=== PATIENT | female | born 1970 | race Two or more races ===

== ENCOUNTER 2024-09-21 09:53 | Emergency (ER) | payer OTHER, MEDICAID, SELFPAY ==
[2024-09-21 09:54] VITALS: BMI 28.3
[2024-09-21 10:00] VITALS: BP 126/84; PULSE 67; RESP 18; TEMP 36.6; O2SAT 99; BMI 27.3
--- NOTE | 2024-09-21 10:12 | XR_ITS ---
Examination: CT abdomen and pelvis without contrast. Coronal 3-D reconstructions. Sagittal 2-D reconstructions. Date and time of exam:September 21, 1999 2547 hours Indications: Onset right flank pain beginning 3 days ago CTDI: vol (mGy): 7.6 DLP: (mGycm): 407 Technique: Axial images of the abdomen have been obtained, 3 mm slice thickness Intravenous contrast material has not been administered. Low dose protocols were performed. One or more of the following dose reduction techniques were used; automated exposure control, adjustment of the mA and/or KV according to patient size, use of iterative reconstruction technique. Findings: 2 mm indeterminate low-density right lobe liver lesion likely cyst No biliary tract dilatation Contracted gallbladder Spleen is not enlarged No pancreatic mass or peripancreatic edema Normal adrenal glands Atrophic right kidney No renal or ureteral calculi Moderate right renal parenchymal scar formation No hydronephrosis 14 mm fat-containing umbilical hernia Normal appendix No diverticulitis Pelvic phleboliths No bladder mass or bladder calculi Anteverted uterus no pelvic mass Moderate distention posteriorly L5-S1 Impression: Atrophic right kidney, moderate right renal parenchymal scar formation No renal or ureteral calculi, no hydronephrosis Normal appendix No bowel obstruction diverticulitis or free air No bladder mass or bladder calculi
[2024-09-21 11:16] LABS: Collection Type, Urine Clean Catch
[2024-09-21 11:35] LABS: Basophils % (Auto) 1 % (0-2.5); Eosinophils # (Auto) 0.1 Thou/mm3 (0.0-0.5); Eosinophils % (Auto) 2 % (0-10); Hemoglobin 13.7 g/dL (12.0-16.0); Immature Granulocytes % (Auto) 0 % (0-0); Immature Granulocytes Auto 0.01 Thou/mm3 (0.00-0.00); Lymphocytes # (Auto) 1.7 Thou/mm3 (1.0-4.8); Lymphocytes % (Auto) 32 % (10-50); Mean Corpuscular HGB Conc 33.4 g/dl (31.0-37.0); Mean Corpuscular Hemoglobin 29.5 pg (25.0-35.0); Mean Corpuscular Volume 88 fL (80-100); Monocytes # (Auto) 0.4 Thou/mm3 (0.0-0.8); Monocytes % (Auto) 7 % (0-12); Neutrophils # (Auto) 3.1 Thou/mm3 (1.8-7.7); Neutrophils % (Auto) 59 % (37-80); Nucleated Red Blood Cell % 0 /100 WBC (0); Platelet Count 201 Thou/mm3 (140-440); RDW Standard Deviation 41.8 fL (36.4-46.3); Red Blood Count 4.64 Miln/mm3 (4.00-5.20); White Blood Count 5.4 Thou/mm3 (3.6-11.0)
[2024-09-21 11:40] LABS: Alanine Aminotransferase 14 U/L (10-49); Albumin, Serum 4.7 gm/dL (3.5-5.0); Albumin/Globulin Ratio 1.7 (1.2-2.2); Alkaline Phosphatase 51 U/L (46-116); Anion Gap 4 (7-16); Aspartate Amino Transferase 12 U/L (0-34); BUN/Creatinine Ratio 21 Ratio (12-20); Bilirubin,Total 0.8 mg/dL (0.3-1.2); Blood Urea Nitrogen 15 mg/dL (9-23); Calcium 9.7 mg/dL (8.3-10.6); Calcium (Corrected) 9.7 mg/dL (8.5-10.1); Carbon Dioxide 29.7 mMol/L (20.0-31.0); Chloride 109 mMol/L (98-107); Creatinine (Component) 0.7 mg/dL (0.6-1.3); Estimated Creatinine Clearance 84.8 mL/min (>60); Globulin 2.7 gm/dL (2.3-3.5); Glucose 91 mg/dL (74-106); Lipase 74 U/L (12-53); Osmolality,Calculated 285 (275-295); Potassium 4.2 mMol/L (3.4-5.1); Sodium 143 mMol/L (136-145); Total Protein 7.4 gm/dL (5.7-8.2); eGFR > 60 See Note
[2024-09-21 11:41] LABS: Bilirubin,Urine Negative (Negative); Blood,Urine Negative (Negative); Clarity,Urine Clear (Clear/Hazy); Color,Urine Lt-Yellow (Lt Yel-Yel); Culture Indicated,Urine Not Indicated; Glucose, Urine Negative (Negative); Ketones,Urine Negative (Negative); Leukocyte Esterase,Urine Positive (Negative); Nitrite,Urine Negative (Negative); PH,Urine 6.5 (5.0-7.0); Protein,Urine Negative (Neg - Trace); RBC,Urine 2 /hpf (0-3); Specific Gravity,Urine 1.028 (1.001-1.035); Squamous Epithelial Cell,Urine 1 /hpf (0-5); Urobilinogen,Urine Negative mg/dL (0.0-1.0); WBC,Urine 1 /hpf (0-5)
--- NOTE | 2024-09-21 12:41 | EDNOTE_ITS ---
ED Abdominal Pain RME/HPI General Chief Complaint: Abdominal Pain Stated complaint: RIGHT FLANK PAIN x 3 DAYS Time seen by provider: 09/21/24 10:13 Arrival date/time: 09/21/24 09:53 54-year-old female presents emergency department complaint of right flank pain ongoing x 3 days patient reports no fever nausea or vomiting patient does report pain worse with movement. Patient reports no chest pain no shortness of breath Limitations: no limitations Related Data Home Medications ?Medication ?Instructions ?Recorded ?Confirmed atenolol 50 mg tablet 50 mg PO HS 05/09/23 05/10/23 Previous Rx's ?Medication ?Instructions ?Recorded cyclobenzaprine 10 mg tablet 10 mg PO TID PRN muscle spasm 10 09/21/24 days #30 tab-caps ibuprofen 600 mg tablet 600 mg PO Q6H #30 tabs 09/21/24 Allergies Allergy/AdvReac Type Severity Reaction Status Date / Time methyldopa Allergy Severe TURN Verified 09/21/24 09:57 YELLOW, DEPRESSION Review of Systems Review of Systems Systems Reviewed: All systems reviewed, normal except as documented Constitutional Constitutional: Reports system reviewed and no additional complaints, except as documented, Denies fever(s) and Denies headache(s) Eyes Eyes: Reports system reviewed and no additional complaints, except as documented and Denies blurry vision ENT Ears, Nose, Mouth, and Throat: Reports system reviewed and no additional complaints, except as documented, Denies headache(s), Denies nasal congestion and Denies nasal discharge Cardiovascular Cardiovascular: Reports system reviewed and no additional complaints, except as documented, Denies chest pain and Denies dyspnea Respiratory Respiratory: Reports system reviewed and no additional complaints, except as documented, Denies chest congestion, Denies cough and Denies dyspnea Gastrointestinal Gastrointestinal: Reports system reviewed and no additional complaints, except as documented, Denies abdominal pain and Reports other (Right flank pain) Integumentary/Breasts Skin/Breast: Reports system reviewed and no additional complaints, except as documented and Denies rash Neurologic Neurologic: Reports system reviewed and no additional complaints, except as documented, Reports as per HPI and Denies headache(s) Past Medical History Past Medical History NEUROLOGIC: Negative Neurological Disorders or Seizures CARDIAC: Positive Cardiac Disorders and Hypertension; Negative Congestive Heart Failure RESPIRATORY: Negative Chronic Obstructive Pulmonary Disease (COPD) GASTROINTESTINAL: Negative Gastrointestinal Disorders GENITOURINARY: Positive Genitourinary Disorders (hx of incontinence); Negative Renal Disease REPRODUCTIVE: Positive Previous Pregnancies MUSCULOSKELETAL: Negative Musculoskeletal Disorders ENDOCRINE: Positive Endocrine Disorders (usama disease); Negative Diabetes Mellitus Type 1 or Diabetes Mellitus Type 2 HEMATOLOGIC: Negative Blood Disorders OTHER HISTORY: Positive Autoimmune Disease (usama's disease), Chicken Pox and Measles; Negative Hospitalization, Falls, Blood Transfusions, Anesthesia Reactions or Cancer Family History FAMILY HISTORY: Negative Family Respiratory Disorders, Family Cardiac Disorders, Family Cancer or Family Anesthesia Reaction Surgical History SURGICAL: Positive Tubal Ligation Social History SMOKING STATUS: Never smoker ED Exam General Limitations: Present no limitations General appearance: Present alert and in no apparent distress Head Head exam: Present atraumatic, normocephalic and normal inspection Eye Eye exam: Present normal appearance, PERRL and EOMI; Absent conjunctival injection ENT ENT exam: Present normal exam, normal oropharynx and mucous membranes moist Neck Neck exam: Present normal inspection, full ROM and trachea midline Chest Chest inspection: Present normal inspection and symmetric chest wall rise Respiratory Respiratory exam: Present normal lung sounds bilaterally; Absent respiratory distress, wheezes, stridor or accessory muscle use Cardiovascular Cardiovascular exam: Present regular rate, normal rhythm and normal heart sounds Abdominal Exam Abdominal exam: Present soft and normal bowel sounds; Absent distention, tenderness, guarding, rebound, rigidity, Bearden's sign or tenderness at McBurney's Point Abdominal tenderness: Absent RUQ or RLQ Extremities Exam Extremities exam: Present normal inspection and full ROM Back Exam Back exam: Present normal inspection and full ROM Neurological Exam Neurological exam: Present alert, oriented X3, CN II-XII intact, normal gait and reflexes normal; Absent motor sensory deficit Psychiatric Psychiatric exam: Present normal affect and normal mood Skin Skin exam: Present warm, dry, intact and normal color; Absent rash Course Quality Measures none Orders Category Date Time Status CT abdomen pelvis wo con Stat Exams 09/21/24 10:12 Completed CBC Stat Lab 09/21/24 10:56 Completed Comprehensive Metabolic Panel Stat Lab 09/21/24 10:56 Completed Lipase Stat Lab 09/21/24 10:56 Completed UA, C/S IF [Urinalysis, C/S if Indicated] Stat Lab 09/21/24 10:20 Completed Vital Signs Vital signs: Vital Signs Temperature 97.8 F 09/21/24 10:00 Pulse Rate 67 09/21/24 10:00 Respiratory Rate 18 09/21/24 10:00 Blood Pressure 126/84 09/21/24 10:00 Pulse Oximetry (%) 99 09/21/24 10:00 Oxygen Delivery Method Room Air 09/21/24 10:00 O2 saturation 99% on room air within normal limits Abdominal Pain MDM MDM Narrative MDM Narrative:: 54-year-old female presents emergency department complaint of right flank pain ongoing x 3 days patient reports no fever nausea or vomiting patient does report pain worse with movement On exam patient well-appearing patient does not appear ill or toxic patient does not appear in acute distress Lab work and CT scan obtained I reviewed the patient's CT with her patient does report history of atrophic kidney Patient noted to have a liver lesion per the radiologist most likely a cyst Patient discharged home in no distress to follow-up with primary care doctor in the next 24 to 48 hours and for any worsening symptoms to return to the ER immediately Patient data External records reviewed:: [facility] previous records Clinical information provided by:: patient Social determinants that could affect healthcare access:: none Patient has the following chronic illnesses:: None How is presenting disease/condition affected by chronic disease/condition?: no chronic disease Evaluation data The following diagnostics were reviewed and interpreted by me:: lab results and radiology exam(s) Lab and/or radiology exams considered but not ordered:: Labs and radiology obtained Interpretation Summary: Reviewed by me Medications / Prescriptions Medications or Prescriptions considered but not ordered:: Given Medication administrations:: Given Consultations Consultation(s) initiated? (list below): No Diagnosis Differential diagnosis abdominal pain: abdominal pain, acute appendicitis, calculus of kidney, gastroenteritis and pancreatitis Most likely diagnosis given after review of the tests above:: Flank pain Admission Indicated Admission indicated?: not indicated Admission Request Was there a request for admission?: No Disposition Plan Disposition Plan: Discharge Discharge Attestation Discharge Attestation: The patient and all family members were given an opportunity to ask questions and understood the discharge instructions. Discharge instructions specifically effects, indications for sooner follow up or return to the emergency department, and the expected course of current diagnosis. Patient condition: Stable Discharge Plan Plan Patient Disposition: HOME (Self Care) Disposition Comment: Stable Prescriptions/Referrals Prescriptions/Med Rec: New cyclobenzaprine 10 mg tablet 10 mg PO TID PRN (Reason: muscle spasm) 10 Days Qty: 30 0RF ibuprofen 600 mg tablet 600 mg PO Q6H Qty: 30 0RF No Action atenolol 50 mg tablet 50 mg PO HS Patient Comments: TAKE 1 TABLET BY MOUTH EVERY DAY Referrals: Telly (PCP),MD Edil [Primary Care Provider] - In 1 week Problem List Clinical Impression: Right flank pain, Atrophy of right kidney, Lesion of liver Patient/Caregiver Discharge Instructions Education Materials: Abdominal Pain Additional Instructions: Please follow up with your primary care doctor in the next 24-48hrs for any worsening symptoms return here immediately Please bring copy of your CT report to your primary care doctor for further evaluation you may need an MRI or ultrasound follow-up for indeterminant low density right lobe liver lesion Print Language: Icelandic Stand Alone Forms: Silvia Award Info., Work/School Release, Patient Portal Info Letter PA/CHIEF CLINICAL OFFICER Supervising Physician PA/CHIEF CLINICAL OFFICER Supervising Physician: Dr. Ramos
== END 2024-09-21 13:32 | disposition home or self-care (01) ==
PROVIDERS: Nurse Practitioner Primary Care; Emergency Provider Emergency Medicine; PCP Family Medicine
DX: R10.9 Unspecified abdominal pain (principal); K76.9 Liver disease, unspecified; N26.1 Atrophy of kidney (terminal)
CPT/HCPCS: 36415; 74176; 80053; 81001; 83690; 85025; 99284

== ENCOUNTER → 2024-10-09 | Outpatient (CLI) | payer OTHER, MEDICAID, SELFPAY ==
[2024-10-09 17:57] LABS: Thyroid Stimulating Hormone 0.84 uIU/mL (0.55-4.78)
== END | disposition home or self-care (01) ==
LOC: COPL 16:37
PROVIDERS: PCP Family Medicine; Referring Provider Family Medicine; Visit Provider Family Medicine
DX: E04.8 Other specified nontoxic goiter (principal)
CPT/HCPCS: 36415; 84443

== ENCOUNTER → 2025-01-15 | Outpatient (CLI) | payer OTHER, MEDICAID, SELFPAY ==
--- NOTE | 2025-01-15 14:00 | XR_ITS ---
Examination: Breast ultrasound complete, bilateral Date and time of exam: January 1412 hours INDICATIONS: Left breast 6:00 nodule 6 mm on sonogram July 10, 2024 Technique: Real-time grayscale ultrasonographic imaging bilateral breasts, including all 4 quadrants as well as nipple retroareolar and axillary regions. Findings: Sonographic images right breast 8:00 cyst 10 x 8 mm No solid nodules Sonographic images left breast 8:00 hyperechoic nodule 5 x 5 mm 11:00 nodule circumscribed 6 x 4 mm IMPRESSION: BI-RADS Category 3: Probably benign findings One additional 6 month left breast sonogram follow-up is needed to document stability of left breast nodules described above
--- NOTE | 2025-01-15 15:00 | XR_ITS ---
Examination: Diagnostic digital mammography, unilateral, left Computer aided detection 3-D breast Tomosynthesis, unilateral Date and time of exam: January 15, 2025 1441 hours Compared to mammograms dating to October 28, 2015 INDICATIONS: Mammogram July 10, 2024 11 mm focal asymmetry upper left breast Technique: Nonmagnified MLO, CC views of the left breast have been obtained, reconstructed from 3-D Tomosynthesis images. R2 computer aided detection program utilized for evaluation of suspicious masses and/or abnormal calcifications. 3-D Tomosynthesis images obtained. Findings: Scattered areas of fibroglandular density 4 mm nodule partially circumscribed outer left breast Impression: BI-RADS category 3: Probably benign findings One additional 6 month left mammogram follow-up is needed
== END | disposition home or self-care (01) ==
PROVIDERS: PCP Family Medicine; Referring Provider Obstetrics & Gynecology; Visit Provider Obstetrics & Gynecology
DX: R92.333 Mammographic heterogeneous density, bilateral breasts (principal); N63.22 Unspecified lump in the left breast, upper inner quadrant; N63.24 Unspecified lump in the left breast, lower inner quadrant
CPT/HCPCS: 76641; 77061; 77065; G0279

== ENCOUNTER → 2025-05-21 | Outpatient (CLI) | payer OTHER, MEDICAID, SELFPAY ==
[2025-05-21 08:00] LABS: Collection Type, Urine Clean Catch
[2025-05-21 08:23] LABS: Basophils # (Auto) 0.0 Thou/mm3 (0.0-0.2); Basophils % (Auto) 1 % (0-2.5); Eosinophils # (Auto) 0.2 Thou/mm3 (0.0-0.5); Eosinophils % (Auto) 4 % (0-10); Hematocrit 42.5 % (36.0-46.0); Hemoglobin 14.1 g/dL (12.0-16.0); Immature Granulocytes Auto 0.01 Thou/mm3 (0.00-0.00); Lymphocytes # (Auto) 1.6 Thou/mm3 (1.0-4.8); Lymphocytes % (Auto) 37 % (10-50); Mean Corpuscular HGB Conc 33.2 g/dl (31.0-37.0); Mean Corpuscular Hemoglobin 29.6 pg (25.0-35.0); Mean Corpuscular Volume 89 fL (80-100); Monocytes # (Auto) 0.3 Thou/mm3 (0.0-0.8); Monocytes % (Auto) 6 % (0-12); Neutrophils # (Auto) 2.4 Thou/mm3 (1.8-7.7); Neutrophils % (Auto) 53 % (37-80); Nucleated Red Blood Cell # 0.00 Thou/mm3 (0.00-0.00); Nucleated Red Blood Cell % 0 /100 WBC (0); Platelet Count 211 Thou/mm3 (140-440); RDW Standard Deviation 41.3 fL (36.4-46.3); Red Blood Count 4.77 Miln/mm3 (4.00-5.20); White Blood Count 4.5 Thou/mm3 (3.6-11.0)
[2025-05-21 08:26] LABS: Bilirubin,Urine Negative (Negative); Blood,Urine Negative (Negative); Clarity,Urine Clear (Clear/Hazy); Color,Urine Lt-Yellow (Lt Yel-Yel); Culture Indicated,Urine Not Indicated; Glucose, Urine Negative (Negative); Ketones,Urine Negative (Negative); Leukocyte Esterase,Urine Negative (Negative); Nitrite,Urine Negative (Negative); PH,Urine 5.5 (5.0-7.0); Protein,Urine Negative (Neg - Trace); RBC,Urine 3 /hpf (0-3); Specific Gravity,Urine 1.024 (1.001-1.035); Squamous Epithelial Cell,Urine < 1 /hpf (0-5); Urobilinogen,Urine Negative mg/dL (0.0-1.0); WBC,Urine < 1 /hpf (0-5)
[2025-05-21 08:41] LABS: Vitamin D 25 Hydroxy Total 30.7 ng/mL (7.3-40.2)
[2025-05-21 08:45] LABS: Alanine Aminotransferase 14 U/L (10-49); Albumin, Serum 4.5 gm/dL (3.5-5.0); Albumin/Globulin Ratio 1.9 (1.2-2.2); Alkaline Phosphatase 66 U/L (46-116); Anion Gap 9 (7-16); Aspartate Amino Transferase 16 U/L (0-34); BUN/Creatinine Ratio 24 Ratio (12-20); Bilirubin,Total 1.2 mg/dL (0.3-1.2); Blood Urea Nitrogen 19 mg/dL (9-23); Calcium 10.0 mg/dL (8.3-10.6); Calcium (Corrected) 10.0 mg/dL (8.5-10.1); Carbon Dioxide 28.8 mMol/L (20.0-31.0); Cardiac Risk Estimate 2.9 RATIO (3.7-5.6); Chloride 105 mMol/L (98-107); Cholesterol 198 mg/dL (132-200); Creatinine (Component) 0.8 mg/dL (0.6-1.3); Globulin 2.4 gm/dL (2.3-3.5); Glucose 83 mg/dL (74-106); HDL Cholesterol 69 mg/dL (40-60); LDL Cholesterol,Calculated 112 mg/dL (0-130); Osmolality,Calculated 286 (275-295); Potassium 4.8 mMol/L (3.4-5.1); Sodium 143 mMol/L (136-145); Thyroid Stimulating Hormone 1.03 uIU/mL (0.55-4.78); Total Protein 6.9 gm/dL (5.7-8.2); Triglycerides 84 mg/dL (30-150); eGFR > 60 See Note
[2025-05-21 09:04] LABS: Creatinine MALB Rnd Ur 100 mg/dL (30-125); Microalbumin, Random Urine < 3 mg/L (0-300)
== END | disposition home or self-care (01) ==
PROVIDERS: PCP Family Medicine; Referring Provider Family Medicine; Visit Provider Family Medicine
DX: Z00.00 Encounter for general adult medical examination without abnormal findings (principal); I10 Essential (primary) hypertension; Z13.0 Encounter for screening for diseases of the blood and blood-forming organs and certain disorders involving the immune mechanism; Z13.1 Encounter for screening for diabetes mellitus; Z13.21 Encounter for screening for nutritional disorder; Z13.220 Encounter for screening for lipoid disorders; Z13.29 Encounter for screening for other suspected endocrine disorder
CPT/HCPCS: 36415; 80053; 80061; 81001; 82043; 82306; 82570; 84443; 85025

== ENCOUNTER → 2025-09-02 | Outpatient (CLI) | payer OTHER, MEDICAID, SELFPAY ==
--- NOTE | 2025-09-02 09:30 | XR_ITS ---
Examination: Breast ultrasound complete, bilateral Date and time of exam: September 02, 2025, 0932 hours INDICATIONS: Mammogram 05/16/2024 6 mm focal asymmetry outer upper left breast, left breast ultrasound 8:00 nodule 5 x 5 mm 11:00 nodule 6 mm January 15, 2025 Technique: Real-time grayscale ultrasonographic imaging bilateral breasts, including all 4 quadrants as well as nipple retroareolar and axillary regions. Findings: Sonographic images right breast 8:00 nodule 3 x 3 mm lobular margins Sonographic images left breast 3:00 nodule lobular margins 3 x 3 mm 8:00 hypoechoic nodule, lipoma 3 x 3 mm IMPRESSION: BI-RADS Category 2: Benign findings
--- NOTE | 2025-09-02 10:45 | XR_ITS ---
Examination: Diagnostic digital mammography, unilateral, left Computer aided detection 3-D breast Tomosynthesis, unilateral Date and time of exam: June 03, 2025, 0926 hours INDICATIONS: Mammogram January 15, 2025 4 mm nodule circumscribed outer left breast Technique: Nonmagnified MLO, CC views of the left breast have been obtained, reconstructed from 3-D Tomosynthesis images. R2 computer aided detection program utilized for evaluation of suspicious masses and/or abnormal calcifications. 3-D Tomosynthesis images obtained. Findings: Scattered areas of fibroglandular density. Benign calcifications. 12 mm nodule upper outer left breast anterior depth partially indistinct margins Impression: BI-RADS category 0: Incomplete: Need additional imaging evaluation Recommend left breast sonogram follow-up to further assess 12 mm nodule upper outer left breast anterior depth, partially indistinct margins
== END | disposition home or self-care (01) ==
LOC: CDIM 09:16
PROVIDERS: Referring Provider Obstetrics & Gynecology; Visit Provider Obstetrics & Gynecology
DX: N63.21 Unspecified lump in the left breast, upper outer quadrant (principal); R92.8 Other abnormal and inconclusive findings on diagnostic imaging of breast
CPT/HCPCS: 76641; 77061; 77065; G0279